=== PATIENT | male | born 1965 | race Caucasian/White ===

== ENCOUNTER 2019-01-01 07:20 | Outpatient (CLI) | payer BC, OTHER ==
--- NOTE | 2019-01-01 09:21 | RAD ---
Left hip arthrogram fluoroscopic guided HISTORY: Left hip pain. Arthritis. FINDINGS: After explaining the procedure and answering all questions, the anterior aspect of the left hip was prepped and draped in usual sterile fashion. Sterile technique, buffered local anesthesia, fluoroscopic guidance, and an anterior approach were used to carefully advance the tip of a 19-gauge spinal needle to the joint capsule at the level of the femoral neck. A total volume of 9 cc liquid containing normal saline, 1% lidocaine, iodinated contrast, and small a mary of gadolinium and epinephrine were then instilled into the joint capsule under fluoroscopic control. Needle was removed and spot images obtained. Patient tolerated the procedure well and was tr ansferred to MRI in good condition for further imaging. Fluoroscopy time 0.6 minutes. IMPRESSION: Technically successful left hip arthrogram. Prominent OsteoArthritic changes. MRI is pending.
--- NOTE | 2019-01-01 11:25 | MRI ---
MR ARTHROGRAM LEFT HIP: INDICATIONS: Trochanteric bursitis and left hip pain. COMPARISON: Left hip arthrogram images dated 01/01/2019. TECHNIQUE: Multiplanar, multisequence MR images were obtained of the left hip following intra-articular administ ration of dilute Gadolinium solution. FINDINGS: There is a subchondral insufficiency fracture involving the left femoral head with flattening of the superior and anterior-superior aspect of the femoral head and surrounding bone marrow edema. There is moderate to severe osteoarthritic change of the left hip joint. There are areas of full-thickness ch ondral thinning involving the superior acetabulum, measuring up to 1.8 cm. There is prominent degener ative fraying of the anterior-superior, superior, posterior-superior and posterior glenoid labrum. Th ere are large paralabral cysts seen along the posterior aspect of the acetabulum, measuring up to 3 c m. There is an additional enlarged paralabral cyst seen on the posterior-superior margin of the left hip, measuring 1.4 cm. There is a partial-thickness tear involving the ligamentum teres. There is ful l-thickness chondral thinning involving the superior head of the left femur. The left gluteus minimus and medius tendons are intact. No iliopsoas or trochanteric bursitis is evident. The hamstring and l eft rectus origins appear within normal limits. No muscular atrophy is grossly evident. No additional acute fracture is evident. The visualized intrapelvic contents reveal no definite acute abnormality. IMPRESSION: 1. Subchondral insufficiency fracture with some mild subchondral collapse involving the left femoral head. 2. Moderate to severe osteoarthrosis of the left hip with degenerative labral tears of the left hip a cetabulum. There are prominent paralabral cysts seen along the posterior-superior and posterior willard n of the left hip acetabulum. 3. Partial-thickness tear of the ligamentum teres. POS: [facility]
== END 2019-01-01 07:21 | disposition home or self-care (01) ==
LOC: RAD 07:20
PROVIDERS: ATTEND Orthopaedic Surgery Sports Medicine
DX: M25.552 Pain in left hip (principal); M70.62 Trochanteric bursitis, left hip; M24.152 Other articular cartilage disorders, left hip; M25.852 Other specified joint disorders, left hip; M16.12 Unilateral primary osteoarthritis, left hip; S73.192A Other sprain of left hip, initial encounter
CPT/HCPCS: 27093